=== PATIENT | male | born 1995 | race Caucasian/White ===

== ENCOUNTER 2019-01-21 18:26 | Emergency (ER) | payer BC ==
[~2019-01-21] VITALS: Ht 180.3 cm; Wt 117.9 kg
[~2019-01-21 18:26] MED LIST: ALBIPROI INH; ALBU90OI6 INH; ALBU90OI61; AMOX500 PO; BUDE10.22 IH; Bactrim Ds Tab1 EACH PO; CETI5 PO; COLCRYS0.6 MG PO; COMBIVENT RESPIM4 GM; CYCL10 PO; Cipro500 MG PO; DOXY100 PO; DULERA; FLUSAL2505 IH; FLUSAL2505 INH; FLUT44OIA IH; HYDACE5 PO; HYDCHL12.5; HYDHCL25 PO; IBUP200 PO; IBUP600 PO; IBUP800 PO; INDO50 PO; MEDIDATE; METPRE4DP PO; MONT10T PO; Percocet 5-3251 EACH PO; RXHYDACE PO; SULTRIDS PO; Zofran Odt4 MG SL
== END 2019-01-21 19:16 | disposition home or self-care (01) ==
LOC: ER 18:26
DX: S31.821A Laceration without foreign body of left buttock, initial encounter (principal); J45.909 Unspecified asthma, uncomplicated; Z79.899 Other long term (current) drug therapy; Z87.891 Personal history of nicotine dependence; X58.XXXA Exposure to other specified factors, initial encounter
CPT/HCPCS: 12001; 90471; 90714; 99282-25

== ENCOUNTER 2021-05-17 15:27 | Emergency (ER) | payer OTHER ==
[~2021-05-17] VITALS: Ht 180.3 cm; Wt 136.1 kg
[2021-05-17 16:03] LABS: BASOPHILS ABSOLUTE AUTO 0.05 K/mm3 (0.00-0.23); BASOPHILS PERCENT AUTO 0 % (0-2); EOSINOPHILS ABSOLUTE AUTO 0.23 K/mm3 (0.00-0.68); EOSINOPHILS PERCENT AUTO 2 % (0-6); Hematocrit 47.4 % (37.0-53.0); Hemoglobin 16.6 g/dL (13.5-17.5); IMMATURE GRAN ABSOLUTE AUTO 0.05 K/mm3 (0.00-0.10); IMMATURE GRAN PERCENT AUTO 0 % (0-1); LYMPHOCYTES ABSOLUTE AUTO 2.16 K/mm3 (0.84-5.20); LYMPHOCYTES PERCENT AUTO 19 % (21-46); MONOCYTES ABSOLUTE AUTO 1.04 K/mm3 (0.16-1.47); MONOCYTES PERCENT AUTO 9 % (4-13); Mean Corpuscular HGB 31.6 pg (26.0-34.0); Mean Corpuscular Volume 90 fL (80-100); Mean Platelet Volume 9.9 fL (9.1-12.4); NEUTROPHILS ABSOLUTE AUTO 8.09 K/mm3 (1.96-9.15); NEUTROPHILS PERCENT AUTO 70 % (41-73); Platelet Count 323 K/mm3 (150-400); RDW Coefficient Variation 11.9 % (11.7-14.2); Red Blood Cell Count 5.25 M/mm3 (4.30-5.90); White Blood Cell Count 11.62 K/mm3 (4.00-11.30)
[2021-05-17 16:33] LABS: Alanine Aminotransfer (ALT/SGP 62 U/L (12-78); Albumin, Blood 4.1 g/dL (3.4-5.0); Albumin/Globulin Ratio 1.1 (0.8-1.8); Alk Phos 68 U/L (50-136); Anion Gap 4 mmol/L (6-16); Aspartate Aminotrans (AST/SGOT 28 U/L (12-37); Bilirubin, Total 0.3 mg/dL (0.1-1.0); Blood Urea Nitrogen 13 mg/dL (8-24); Bun/Creatinine Ratio 15.4 (12.0-20.0); CO2, Blood 26 mmol/L (21-32); Calcium, Blood 9.1 mg/dL (8.5-10.1); Chloride, Blood 108 mmol/L (98-108); Creatinine, Blood 0.84 mg/dL (0.60-1.20); Globulin, Blood 3.6 g/dL (2.2-4.0); Glomerular Filtration Rate >60 (60-); Glucose, Blood 100 mg/dL (70-99); Potassium, Blood 3.9 mmol/L (3.5-5.5); Sodium, Blood 138 mmol/L (136-145); Total Protein, Blood 7.7 g/dL (6.4-8.2)
[2021-05-17] MEDS ORDERED: Percocet 5-3251 EACH PO (16:42)
== END 2021-05-17 17:09 | disposition home or self-care (01) ==
LOC: ER 15:27
PROVIDERS: Emergency Medicine
DX: S66.911A Strain of unspecified muscle, fascia and tendon at wrist and hand level, right hand, initial encounter (principal); S80.01XA Contusion of right knee, initial encounter; S50.02XA Contusion of left elbow, initial encounter; Z88.1 Allergy status to other antibiotic agents; Z91.048 Other nonmedicinal substance allergy status; Z88.8 Allergy status to other drugs, medicaments and biological substances; Z79.899 Other long term (current) drug therapy; V49.9XXA Car occupant (driver) (passenger) injured in unspecified traffic accident, initial encounter
CPT/HCPCS: 70450; 72125; 73070; 73110; 73562-RT; 74176; 80053; 83690; 85025; A9270

== ENCOUNTER 2021-11-03 22:10 | Emergency (ER) | payer OTHER ==
[~2021-11-03] VITALS: Ht 180.3 cm; Wt 136.1 kg
[2021-11-03] MEDS ORDERED: Hydrocortiso453.6 G3 TOP (23:21)
[2021-11-03] MEDS ORDERED: HYDROSEPTINE O100 GM TOP (23:22)
== END 2021-11-03 23:40 | disposition home or self-care (01) ==
LOC: ER 22:10
DX: L20.9 Atopic dermatitis, unspecified (principal); J45.909 Unspecified asthma, uncomplicated; Z88.8 Allergy status to other drugs, medicaments and biological substances; Z91.048 Other nonmedicinal substance allergy status; Z91.09 Other allergy status, other than to drugs and biological substances; Z79.899 Other long term (current) drug therapy
CPT/HCPCS: A9270

== ENCOUNTER 2023-11-25 08:58 | Emergency (ER) | payer OTHER ==
[~2023-11-25] VITALS: Ht 180.3 cm; Wt 140.6 kg
[~2023-11-25 08:58] MED LIST changes: +HYDROSEPTINE O100 GM TOP; +Hydrocortiso453.6 G3 TOP
[2023-11-25 09:10] VITALS: BP 184/115
[2023-11-25] MEDS ORDERED: FLUT1DIS8 INH (09:13)
[2023-11-25] MEDS ORDERED: LISI20 PO (09:13)
[2023-11-25] MEDS ORDERED: COMBIVENT RESPIM4 G1 (09:14)
[2023-11-25] MEDS ORDERED: CYCL10 PO (09:15)
[2023-11-25] MEDS ORDERED: OXYC5 PO (09:46)
[2023-11-25] MEDS ORDERED: TIZA4 PO (09:46)
== END 2023-11-25 09:50 | disposition home or self-care (01) ==
LOC: ER 08:58
DX: M54.16 Radiculopathy, lumbar region (principal); G89.29 Other chronic pain; J45.909 Unspecified asthma, uncomplicated; Z88.8 Allergy status to other drugs, medicaments and biological substances; Z79.899 Other long term (current) drug therapy
CPT/HCPCS: 99283